=== PATIENT | female | born 1985 | race Caucasian/White ===

== ENCOUNTER 2022-05-28 15:34 | Outpatient (CLI) | payer BC, SELFPAY ==
[2022-05-28 15:19] LABS: Chloride* 107 mmol/L (96-114)
[2022-05-28 15:20] LABS: Albumin* 4.7 g/dL (3.3-5.0); Potassium* 4.4 mmol/L (3.6-5.1); Sodium* 141 mmol/L (135-149)
[2022-05-28 15:22] LABS: Carbon Dioxide* 26 mmol/L (20-32); Cholesterol* 222 mg/dL (90-199)
[2022-05-28 15:23] LABS: Alanine Aminotransferase* 60 U/L (4-35); Alkaline Phosphatase* 78 U/L (40-150); Aspartate Amino Transferase* 62 U/L (12-35); Bilirubin Total* 0.6 mg/dL (0.1-1.5); Blood Urea Nitrogen* 10 mg/dL (5-24); Calcium* 9.3 mg/dL (8.4-10.6); Creatinine* 0.6 mg/dL (0.5-1.5); Estimated Glomerular Filt Rate 118 ml/min; Glucose* 86 mg/dL (60-115); Total Protein* 7.5 g/dL (6.0-8.3); Triglycerides* 150 mg/dL (40-149)
[2022-05-28 15:24] LABS: HDL Cholesterol* 78 mg/dL (>=50); LDL Cholesterol Calculated 114 mg/dL (<100)
== END 2022-05-28 15:35 | disposition home or self-care (01) ==
PROVIDERS: PCP Family Medicine; Visit Provider Family Medicine
DX: E78.5 Hyperlipidemia, unspecified (principal); E03.9 Hypothyroidism, unspecified; R79.89 Other specified abnormal findings of blood chemistry; F41.9 Anxiety disorder, unspecified
CPT/HCPCS: 80053; 80061; 84443

== ENCOUNTER 2023-08-25 08:24 | Outpatient (CLI) | payer BC, SELFPAY | END 2023-08-25 08:25 | disposition home or self-care (01) | LOC: NFLDREF 08-26 06:31 | PROVIDERS: PCP Family Medicine; Referring Provider Family Medicine; Visit Provider Family Medicine | DX: E03.9 Hypothyroidism, unspecified (principal); E78.5 Hyperlipidemia, unspecified; R79.89 Other specified abnormal findings of blood chemistry | CPT/HCPCS: 80053; 80061; 84443 ==

== ENCOUNTER 2025-02-28 08:24 | Outpatient (CLI) | payer OTHER, SELFPAY | END 2025-02-28 08:25 | disposition home or self-care (01) | LOC: NFLDREF 03-02 15:54 | PROVIDERS: PCP Family Medicine; Referring Provider Family Medicine; Visit Provider Family Medicine | DX: F10.10 Alcohol abuse, uncomplicated (principal); R79.89 Other specified abnormal findings of blood chemistry; E03.9 Hypothyroidism, unspecified; E78.5 Hyperlipidemia, unspecified | CPT/HCPCS: 80048; 80061; 80076; 82977; 84439; 84443; 86706; 86803; 87340 ==

== ENCOUNTER 2025-03-06 07:55 | Outpatient (CLI) | payer OTHER, SELFPAY ==
[2025-03-08 15:13] LABS: HPV Source Cervical/Vag
[2025-03-13 15:23] LABS: Pap Test Digital Imaging Done; Pap Test Reviewed by Pathologi Done
== END 2025-03-06 07:56 | disposition home or self-care (01) ==
PROVIDERS: PCP Family Medicine; Visit Provider Family Medicine
DX: E78.5 Hyperlipidemia, unspecified (principal); E03.9 Hypothyroidism, unspecified; F10.10 Alcohol abuse, uncomplicated; Z12.4 Encounter for screening for malignant neoplasm of cervix
CPT/HCPCS: 87624; 87625; 88141; 88142; 88175